=== PATIENT | female | born 1995 | race Hispanic/Latino ===

== ENCOUNTER 2017-04-22 21:22 | Emergency (ER) | payer OTHER ==
[~2017-04-22] VITALS: Ht 160 cm; Wt 70.9 kg
[2017-04-22 21:25] VITALS: BP 109/72; PULSE 84; RESP 18; O2SAT 100
--- NOTE | 2017-04-22 21:56 | ED.REPORT ---
HPI-General Illness Date of Service Apr 22, 2017 ED Provider: Dr. Rahul Winslow D.O. The patient is a healthy 21 year old female with a remote history of anxiety who presents to the ED reporting lightheadedness onset this evening, while at work. Associated symptoms include head and neck "tightness," near-syncope, recent stress, and transient bilateral fingertip numbness. The patient denies weakness or other symptoms. Her mother reports that she is generally quite nervous. Nursing Notes Stated Complaint: LIGHT HEADED/THROAT CLOSING UP Chief Complaint: General Complaint Nursing Notes Reviewed: Yes Allergies: Coded Allergies: No Known Allergies (Unverified , 04/22/17) Scheduled PRN Lorazepam (Ativan) 0.5 Mg Tablet 0.5 MG PO DAILY PRN PRN For Anxiety General Time Seen by MD: 21:56 Chief Complaint Other (Lightheadedness) Hx Obtained From: Patient Arrived By: Walk-in Sudden in Onset?: Yes Onset Occurred: 1 - 4 hours ago Symptom Duration: Since onset Location: : Head: Neck Quality: Painful ("Tightness") Severity: Current: Moderate Severity: Maximum: Moderate Pertinent Negative: Relieved by nothing Recent Healthcare: No recent doctor visit Past Medical History Past Medical History Anxiety as a young teen Past Surgical History None reported Smoking History Never Smoker Social History Other Social History: Good social support Ambulatory Status Independent Review of Systems + Head and neck "tightness," near-syncope Full Review of Systems Constitutional: Denies: Fever Respiratory: Denies: Non-productive cough, Shortness of breath GI: Denies: Diarrhea, Vomiting Neurologic: Reports: Lightheaded, Numbness (Transient, fingertips bilaterally) , Denies: Weakness Psychiatric: Reports: Stress Complete sys rev & neg: except as marked. Physical Exam Vital Signs Vital Signs Date Time Temp Pulse Resp B/P Pulse Ox O2 Delivery O2 Flow Rate FiO2 04/23/17 00:03 37.3 76 17 110/60 100 Room Air 04/22/17 22:48 73 102/62 04/22/17 22:48 76 106/57 04/22/17 21:25 36.3 84 18 109/72 100 Room Air Initial VS: Reviewed Head / Eyes: Atraumatic, Normocephalic ENT: Conjunctiva normal, No scleral icterus Neck: Supple, Full range of motion Respiratory: Breath sounds normal, Clear to auscultation, No respiratory distress Cardiovascular: Regular rate & rhythm, Heart sounds normal Skin: Warm, Dry, No cyanosis Neurologic: Alert, Oriented, Nonfocal General/Constitutional: Awake, Alert Behavior: Positive: Anxious, Tearful Re-Eval/Medical Decision Med Decision/Clinical Course 21-year-old otherwise healthy female presents with a constellation of vague symptoms including headache, lightheadedness, tingling in her fingers bilaterally, and chest tightness. Her exam is entirely unremarkable other than that she appeared anxious and was tearful. Her symptoms improved completely with Ativan 0.5 mg once orally. Mom notes that she has had many episodes of anxiety recently and has going through significant stress with school. I advised that she be seen for anxiety and follow-up and patient and mom agree. Time of Eval: 23:33 Patient Status: Condition improved Re-Evaluation/Progress Note: Discussed with patient lab results, diagnosis, and plan for discharge. Follow-up and return to the ER instructions given. Patient agrees with plan for care and all questions were addressed. Counseled Regarding: Diagnosis, Lab results, Need for follow-up, When/why to return to ED Discharge & Departure Primary Impression: Anxiety Additional Impressions: Headache Headache type: unspecified Headache chronicity pattern: unspecified pattern Intractability: not intractable Qualified Code: R51 - Headache Paresthesia of both hands Disposition: Home Discharge Condition All VS Reviewed: Yes Condition: Improved Patient Instructions: Anxiety (ED) Additional Instructions: Thank you for entrusting us with your care. I believe the cause of your symptoms is anxiety. Call the referral clinic on Monday for a follow-up appointment to discuss this further and come up with a treatment plan. Take the provided medication as needed for anxiety. Return to the ER with any new or worsening symptoms. Referrals: Bia Fitzgerald MD (PCP) [facility] Scribe Attestation Portions of this note were transcribed by Sonia Singleton. I, Dr. Winslow, personally performed the history, physical exam, and medical decision-making; I reviewed and confirmed the accuracy of the information in the transcribed note. Signed by: Tavares Velasquez, 04/23/2017, 00:25 copies to: Bia Fitzgerald MD; [facility] Franklyn Winslow DO Apr 22, 2017 21:56 SONIA SINGLETON Apr 22, 2017 22:23
[2017-04-22] MEDS ORDERED: LORazepam 0.5 mg Tablet PO ONE (22:25)
[2017-04-22 22:48] VITALS: BP_SYST 102; BP_SYST 106; BP_DIAS 57; BP_DIAS 62; PULSE 73; PULSE 76
[2017-04-22] MEDS ORDERED: LORA-302 PO (23:53)
[2017-04-23 00:03] VITALS: BP 110/60; PULSE 76; RESP 17; O2SAT 100
== END 2017-04-23 00:05 | disposition home or self-care (01) ==
LOC: SED 21:22
DX: F41.9 Anxiety disorder, unspecified (principal); R51 Headache; R20.2 Paresthesia of skin; R55 Syncope and collapse; F43.9 Reaction to severe stress, unspecified